=== PATIENT | female | born 1995 | race Caucasian/White ===

== ENCOUNTER 2018-08-29 10:21 | Emergency (ER) | payer MEDICAID, OTHER ==
[~2018-08-29] VITALS: Ht 170.2 cm; Wt 55.5 kg
[2018-08-29 10:30] VITALS: BP 120/56; PULSE 81; RESP 19; Ht 170.2 cm; Wt 55.5 kg
[2018-08-29] MEDS ORDERED: NITR-58 PO (12:36)
--- NOTE | 2018-08-29 12:42 | ERD ---
ER Documentation Chief Complaint Chief Complaint ABDOMINAL PAIN ; VAGINAL DISCHARGES LMP 07/17/18 HPI 23-year-old female presents for pelvic pain x1 day. Currently 6 weeks . She states A2 she states that she has a cramping sensation, rated 8 out of 10. Intermittent. She also states she has green discharge. She denies any vaginal bleeding. Denies nausea or vomiting. Denies fevers or chills. Otherwise no significant past medical history no other modifying factors noted. No treatment tried at home. ROS All systems reviewed and are negative except as per history of present illness. Medications Home Meds Active Scripts Nitrofurantoin Monohyd Macrocr* (Macrobid*) 100 Mg Capsr, 100 MG PO BID for bacteruria for 5 Days, #10 CAP Prov:ROBERT COOL DO 08/29/18 Allergies Allergies: Coded Allergies: No Known Allergy (Unverified , 08/29/18) PMhx/Soc Medical and Surgical Hx: pt denies Medical Hx, pt denies Surgical Hx Hx Alcohol Use: No Hx Substance Use: No Hx Tobacco Use: No Smoking Status: Never smoker FmHx Family History: No coronary disease Physical Exam Vitals Vital Signs Date Temp Pulse Resp B/P (MAP) Pulse Ox O2 O2 Flow FiO2 Time Delivery Rate 08/29/18 98.4 81 19 120/56 98 10:30 (77) Physical Exam Const: No acute distress Resp: Clear to auscultation bilaterally Cardio: Regular rate and rhythm, no murmurs Abd: Soft, non distended. Normal bowel sounds, no McBurney's point tendernes s, no Bedoya sign, no rebound or guarding noted, there is mild tenderness palpation over the pelvic area bilaterally Skin: No petechiae or rashes Back: No midline or flank tenderness Ext: No cyanosis, or edema Neur: Awake and alert Psych: Normal Mood and Affect Result Diagram: 08/29/18 1100 Results 24 hrs Laboratory Tests Test 08/29/18 11:00 White Blood Count 6.8 10^3/ul Red Blood Count 4.16 10^6/ul Hemoglobin 13.2 g/dl Hematocrit 39.0 % Mean Corpuscular Volume 93.8 fl Mean Corpuscular Hemoglobin 31.7 pg Mean Corpuscular Hemoglobin Concent 33.8 g/dl Red Cell Distribution Width 13.2 % Platelet Count 249 10^3/UL Mean Platelet Volume 9.5 fl Immature Granulocytes % 0.300 % Neutrophils % 64.4 % Lymphocytes % 23.0 % Monocytes % 10.5 % Eosinophils % 1.2 % Basophils % 0.6 % Nucleated Red Blood Cells % 0.0 /100WBC Immature Granulocytes # 0.020 10^3/ul Neutrophils # 4.4 10^3/ul Lymphocytes # 1.6 10^3/ul Monocytes # 0.7 10^3/ul Eosinophils # 0.1 10^3/ul Basophils # 0.0 10^3/ul Nucleated Red Blood Cells # 0.0 10^3/ul Urine Color YELLOW Urine Clarity CLOUDY Urine pH 5.0 Urine Specific [place] 1.021 Urine Ketones NEGATIVE mg/dL Urine Nitrite NEGATIVE mg/dL Urine Bilirubin NEGATIVE mg/dL Urine Urobilinogen NEGATIVE mg/dL Urine Leukocyte Esterase 1+ Truman/ul Urine Microscopic RBC 3 /HPF Urine Microscopic WBC 10 /HPF Urine Squamous Epithelial Cells FEW /HPF Urine Bacteria FEW /HPF Urine Mucus FEW /HPF Urine Hemoglobin NEGATIVE mg/dL Urine Glucose NEGATIVE mg/dL Urine Total Protein NEGATIVE mg/dl Beta HCG, Quantitative 69800.0 mIU/ml Procedures/MDM Medical Decision Making: Differential diagnosis includes but not limited to acute gastritis, acute gastroenteritis, appendicitis, cholecystitis, pancreatitis, nephrolithiasis Patient appeared well on physical exam. Nontoxic appearing. ED course: Labs: CBC showed no severe anemia, no elevated WBC to suggest infection Beta-hCG 99169 UA was shows some bacteria Imaging: OB ultrasound shows single live intrauterine about 6 weeks , ovaries noted to be normal Prescription(s): Patient given prescription for supportive medications, patient given Macrobid for bacteriuria in .. advised to follow-up with PLATFORM INSPECTOR. Patient advised to follow up with PCP in 1-2 days. Patient advised to return to ED for new or worsening symptoms. Patient stable on discharge from the ED. Disclaimer: Inadvertent spelling and grammatical errors are likely due to EHR/dictation software use and do not reflect on the overall quality of patient care. Also, please note that the electronic time recorded on this note does not necessarily reflect the actual time of the patient encounter. Departure Diagnosis: Primary Impression: Pelvic pain affecting Trimester: first trimester Qualified Codes: O26.891 - Other specified related conditions, first trimester; R10.2 - Pelvic and perineal p ain Condition: Fair Patient Instructions: Adapting to : First Trimester Referrals: [facility] YOU HAVE RECEIVED A MEDICAL SCREENING EXAM AND THE RESULTS INDICATE THAT YOU DO NOT HAVE A CONDITION THAT REQUIRES URGENT TREATMENT IN THE EMERGENCY DEPARTMENT. FURTHER EVALUATION AND TREATMENT OF YOUR CONDITION CAN WAIT UNTIL YOU ARE SEEN IN YOUR DOCTORS OFFICE WITHIN THE NEXT 1-2 DAYS. IT IS YOUR RESPONSIBILITY TO MAKE AN APPOINTMENT FOR FOLOW-UP CARE. IF YOU HAVE A PRIMARY DOCTOR --you should call your primary doctor and schedule an appointment IF YOU DO NOT HAVE A PRIMARY DOCTOR YOU CAN CALL OUR PHYSICIAN REFERRAL HOTLINE AT IF YOU CAN NOT AFFORD TO SEE A PHYSICIAN YOU CAN CHOSE FROM THE FOLLOWING [facility] [address] [facility]. [facility] [address] [facility]. [facility] [address] [facility] [facility] [address] [facility]. [facility] [address] [facility]. [facility] [address] Additional Instructions: Call your primary care doctor TOMORROW for an appointment during the next 1-2 days.See the doctor sooner or return here if your condition worsens before your appointment time. ROBERT COOL DO August 29, 2018 12:42
== END 2018-08-29 13:06 | disposition home or self-care (01) ==
LOC: FTE 10:21
DX: O26.891 Other specified pregnancy related conditions, first trimester (principal); R10.2 Pelvic and perineal pain; Z3A.01 Less than 8 weeks gestation of pregnancy
CPT/HCPCS: 36415; 76801; 76817; 81001; 84702; 85025; 86900; 86901; Z7502

== ENCOUNTER 2018-10-02 14:57 | Emergency (ER) | payer OTHER ==
[~2018-10-02] VITALS: Ht 170.2 cm; Wt 55.7 kg
[~2018-10-02 14:57] MED LIST: NITR-58 PO
[2018-10-02 15:00] VITALS: Ht 170.2 cm; Wt 55.7 kg
[2018-10-02] MEDS ORDERED: ACETAMINOPHEN 500 MG TAB PO STA (15:12)
[2018-10-02] MEDS ORDERED: SOD CHLORIDE 0.9% 1,000 ML IV STA (15:12)
[2018-10-02] MEDS ORDERED: ONDANSETRON 4 MG INJ IV STA (15:12)
--- NOTE | 2018-10-02 16:40 | ERD ---
ER Documentation Chief Complaint Chief Complaint vomiting and headache since yesterday, 11weeks HPI Patient is a 23-year-old female who is about 11 weeks complaining of nausea vomiting and headache. Patient has no OB complaints. No abdominal pain or pelvic pain. No vaginal bleeding. No dysuria hematuria or frequency. No fevers. Has not taken any medications for her headache. ROS All systems reviewed and are negative except as per history of present illness. Medications Home Meds Active Scripts Acetaminophen* (Tylophen*) 500 Mg Capsule, 1 CAP PO Q4 PRN for PAIN AND OR ELEVATED TEMP, #30 CAP Prov:JOHN JOLLEY PA-C 04/20/18 Omeprazole* (Omeprazole*) 20 Mg Capsule., 20 MG PO DAILY, #14 Prov:JOHN JOLLEY PA-C 04/20/18 Allergies Allergies: Coded Allergies: No Known Allergy (Unverified , 10/02/18) PMhx/Soc Hx Alcohol Use: No Hx Substance Use: No Hx Tobacco Use: No Smoking Status: Never smoker FmHx Family History: No diabetes Physical Exam Vitals Vital Signs Date Temp Pulse Resp B/P (MAP) Pulse Ox O2 O2 Flow FiO2 Time Delivery Rate 10/02/18 97.9 71 18 126/56 98 15:00 (79) Physical Exam INITIAL VITAL SIGNS: Reviewed by me GENERAL: Awake, alert and oriented x 4, well appearing, nontoxic, speaking in full sentences. No acute distress HEAD: Atraumatic NECK: Supple. No masses. Full range of motion. No meningismus. No midline tenderness. EYES: EOMI. PERRL. RESPIRATORY: Clear to auscultation bilaterally. Symmetric chest wall rise. No wheezing or rales. No accessory muscle use. CV: Regular rate and rhythm. No murmurs, rubs, or gallops. ABDOMEN: Soft, non-distended. Nontender. Negative Kipling. Negative McBurneys point tenderness. No CVA tenderness bilaterally. No guarding. No rebound. NEUROLOGIC: Normal mental status and speech. Face is symmetric. Moves all extremities equally. Motor and sensory distally intact. Normal coordination. Ambulates with a strong steady gait. Result Diagram: 10/02/18 1521 10/02/18 1521 Results 24 hrs Laboratory Tests Test 6/24/19 15:21 White Blood Count 9.9 10^3/ul Red Blood Count 3.94 10^6/ul Hemoglobin 12.7 g/dl Hematocrit 37.0 % Mean Corpuscular Volume 93.9 fl Mean Corpuscular Hemoglobin 32.2 pg Mean Corpuscular Hemoglobin Concent 34.3 g/dl Red Cell Distribution Width 13.1 % Platelet Count 253 10^3/UL Mean Platelet Volume 9.7 fl Immature Granulocytes % 0.600 % Neutrophils % 67.5 % Lymphocytes % 22.1 % Monocytes % 8.3 % Eosinophils % 1.0 % Basophils % 0.5 % Nucleated Red Blood Cells % 0.0 /100WBC Immature Granulocytes # 0.060 10^3/ul Neutrophils # 6.7 10^3/ul Lymphocytes # 2.2 10^3/ul Monocytes # 0.8 10^3/ul Eosinophils # 0.1 10^3/ul Basophils # 0.1 10^3/ul Nucleated Red Blood Cells # 0.0 10^3/ul Urine Color YELLOW Urine Clarity SLIGHTLY CLOUDY Urine pH 7.0 Urine Specific [place] 1.019 Urine Ketones NEGATIVE mg/dL Urine Nitrite NEGATIVE mg/dL Urine Bilirubin NEGATIVE mg/dL Urine Urobilinogen NEGATIVE mg/dL Urine Leukocyte Esterase 1+ Truman/ul Urine Microscopic RBC 1 /HPF Urine Microscopic WBC 2 /HPF Urine Squamous Epithelial Cells MODERATE /HPF Urine Bacteria FEW /HPF Urine Mucus FEW /HPF Urine Hemoglobin NEGATIVE mg/dL Urine Glucose NEGATIVE mg/dL Urine Total Protein NEGATIVE mg/dl Sodium Level 138 mmol/L Potassium Level 3.8 mmol/L Chloride Level 104 mmol/L Carbon Dioxide Level 23 mmol/L Anion Gap 11 Blood Urea Nitrogen 8 mg/dl Creatinine 0.53 mg/dl Est Glomerular Filtrat Rate mL/min > 60 mL/min Glucose Level 81 mg/dl Calcium Level 9.0 mg/dl Total Bilirubin 0.5 mg/dl Direct Bilirubin 0.00 mg/dl Indirect Bilirubin 0.5 mg/dl Aspartate Amino Transf (AST/SGOT) 23 IU/L Alanine Aminotransferase (ALT/SGPT) 22 IU/L Alkaline Phosphatase 59 IU/L Total Protein 7.1 g/dl Albumin 4.0 g/dl Globulin 3.10 g/dl Albumin/Globulin Ratio 1.29 Current Medications Medications Dose Sig/Tl Start Time Status Last (Trade) Ordered Route PRN Stop Time Admin Dose Reason Admin Sodium 1,000 ml @ Q1H STAT 10/02/18 DC 10/02/18 Chloride 1,000 mls/hr IV 15:12 15:26 10/02/18 16:11 Ondansetron 4 mg ONCE STAT 10/02/18 DC 10/02/18 HCl (Zofran IV 15:12 15:24 Inj) 10/02/18 15:14 1,000 mg ONCE STAT 10/02/18 DC 10/02/18 Acetaminophen PO 15:12 15:24 (Tylenol 10/02/18 15:14 Tab) Procedures/MDM Patient has headache and nausea vomiting with . She has no pelvic pain or abdominal pain or vaginal bleeding. She is being followed up with her OB and today has no OB complaints. Laboratory analysis shows no evidence of acute emergent abnormality. No evidence of significant leukocytosis suggesting systemic infection or severe anemia. No evidence of acute renal or liver failure, no evidence of severe alkalosis or acidosis. Patient felt better after getting IV fluids, p.o. Tylenol, and Zofran. And Keflex as her urine today does show a UTI. Patient counseled regarding my diagnostic impression and care plan. Prior to discharge all questions answered. Pt agrees with treatment plan and understands strict return precautions. Pt is instructed to follow up with primary care provider within 24-48 hours. Precautionary instructions provided including instructions to return to the ER if not improving or for any worsening or changing symptoms or concerns. Departure Diagnosis: Primary Impression: Vomiting Additional Impression: Headache Condition: Stable GLADYS ALEXANDER PA-C Oct 02, 2018 16:40
[2018-10-02 17:16] VITALS: BP 109/57; PULSE 80; RESP 18
== END 2018-10-02 17:18 | disposition home or self-care (01) ==
LOC: MERGE 14:57 → FTE 14:57
DX: O21.9 Vomiting of pregnancy, unspecified (principal); O26.891 Other specified pregnancy related conditions, first trimester; R51 Headache; Z3A.11 11 weeks gestation of pregnancy
CPT/HCPCS: 80053; 81001; 85025; 96361; 96374; J2405; J7030; Z7502; Z7610

== ENCOUNTER 2018-10-10 19:13 | Emergency (ER) | payer OTHER ==
[~2018-10-10] VITALS: Ht 170.2 cm; Wt 57.0 kg
[2018-10-10 19:21] VITALS: BP 107/59; PULSE 72; RESP 16; Ht 170.2 cm; Wt 57.0 kg
[2018-10-10] MEDS ORDERED: ACET500C5 PO (21:37)
--- NOTE | 2018-10-10 21:45 | ERD ---
ER Documentation Chief Complaint Chief Complaint pelvic pain, no vag bleeding. 12 weeks HPI Patient is a 23-year-old female, no past medical history, G3, SAB 2 who presents to the ER for concerns of pelvic pain which started earlier today. Patient states she was at her [employer]ATEM[employer]ER's office at [facility] and Doppler ultrasound did not show any heart tones. Patient states she presents today requesting formal ultrasound given that heart tones were not noted. Patient denies any vaginal bleeding. Patient denies any fevers or chills. Patient denies any dysuria, frequency, urgency or hematuria. ROS All systems reviewed and are negative except as per history of present illness. Medications Home Meds Active Scripts Acetaminophen* (Tylophen*) 500 Mg Capsule, 1 CAP PO Q6H PRN for PAIN AND OR ELEVATED TEMP, #20 CAP Prov:MARTINA CLARK PA-C 10/10/18 Nitrofurantoin Monohyd Macrocr* (Macrobid*) 100 Mg Capsr, 100 MG PO BID for bacteruria for 5 Days, #10 CAP Prov:ROBERT COOL DO 08/29/18 Allergies Allergies: Coded Allergies: No Known Allergy (Unverified , 08/29/18) PMhx/Soc Medical and Surgical Hx: pt denies Medical Hx, pt denies Surgical Hx Hx Alcohol Use: No Hx Substance Use: No Hx Tobacco Use: No Smoking Status: Never smoker FmHx Family History: No diabetes Physical Exam Vitals Vital Signs Date Temp Pulse Resp B/P (MAP) Pulse Ox O2 O2 Flow FiO2 Time Delivery Rate 10/10/18 99.1 72 16 107/59 100 19:21 (75) Physical Exam GENERAL: Well-developed, well-nourished female. Appears in no acute distress. HEAD: Normocephalic, atraumatic. EYES: Pupils are equally reactive bilaterally. EOMs grossly intact. No conjunctival erythema. NECK: Supple. No meningismus. Normal range of motion of the neck. LUNG: Clear to auscultation bilaterally. No rhonchi, wheezing, rales or coarse breath sounds. HEART: Regular rate and rhythm. No murmurs, rubs or gallops. ABDOMEN: No scars, ecchymosis or rashes noted. Soft, nontender, and nondistended. Positive bowel sounds in all four quadrants. No rebound tenderness, no guarding. (-) McBurney's point tenderness. No CVA tenderness. EXTREMITIES: Equal pulses bilaterally. No peripheral clubbing, cyanosis or edema. No unilateral leg swelling. NEUROLOGIC: Alert and oriented. Moving all four extremities without any diffi culty. Normal speech. Steady gait. SKIN: Normal color. Warm and dry. No rashes or lesions. Result Diagram: 10/10/181957 Results 24 hrs Laboratory Tests Test 10/10/18 19:58 White Blood Count 8.8 10^3/ul Red Blood Count 3.83 10^6/ul Hemoglobin 12.6 g/dl Hematocrit 35.6 % Mean Corpuscular Volume 93.0 fl Mean Corpuscular Hemoglobin 32.9 pg Mean Corpuscular Hemoglobin Concent 35.4 g/dl Red Cell Distribution Width 13.2 % Platelet Count 258 10^3/UL Mean Platelet Volume 9.5 fl Immature Granulocytes % 0.600 % Neutrophils % 65.3 % Lymphocytes % 25.1 % Monocytes % 7.4 % Eosinophils % 1.0 % Basophils % 0.6 % Nucleated Red Blood Cells % 0.0 /100WBC Immature Granulocytes # 0.050 10^3/ul Neutrophils # 5.7 10^3/ul Lymphocytes # 2.2 10^3/ul Monocytes # 0.7 10^3/ul Eosinophils # 0.1 10^3/ul Basophils # 0.1 10^3/ul Nucleated Red Blood Cells # 0.0 10^3/ul Urine Color YELLOW Urine Clarity SLIGHTLY CLOUDY Urine pH 5.0 Urine Specific [place] 1.023 Urine Ketones NEGATIVE mg/dL Urine Nitrite NEGATIVE mg/dL Urine Bilirubin NEGATIVE mg/dL Urine Urobilinogen NEGATIVE mg/dL Urine Leukocyte Esterase TRACE [place]/ul Urine Microscopic RBC 1 /HPF Urine Microscopic WBC 7 /HPF Urine Squamous Epithelial Cells MANY /HPF Urine Bacteria FEW /HPF Urine Hemoglobin NEGATIVE mg/dL Urine Glucose NEGATIVE mg/dL Urine Total Protein NEGATIVE mg/dl Beta HCG, Quantitative 90325.0 mIU/ml Procedures/MDM ED COURSE: The patient was stable throughout ED course. I kept the patient and/or family informed of laboratory and diagnostic imaging results throughout the ED course. DIAGNOSTIC IMAGING: Read by radiologist. Patient: JOSE CHEN : 1995 Age: 23 Sex: F MR #: [id number] DOS: 10/10/18 1948 Ordering MD: MARTINA CLARK PA-C Location: [facility] Room/Bed: PROCEDURE: US OB. CLINICAL INDICATION: . Pain. No demonstrated heart tones obstetrics office. LAST MENSTRUAL PERIOD: 07/17/2018 TECHNIQUE: Transabdominal and transvaginal views of the pelvis are available for review. COMPARISON: 08/29/2018 FINDINGS: Sandborn-rump length: 5.5 cm heart rate: 152 Ultrasound estimated gestational age: 12 weeks and 1 day No ovarian or adnexal mass lesion is seen. There is no free fluid. IMPRESSION: Single live intrauterine with an estimated gestational age of 12 weeks and 1 day. RPTAT:AAJJ Physician Rufino Date Time Electronically viewed and signed by Zachariah Raygoza Physician on 10/10/2018 20:22 MH/ CC: MARTINA CLARK PA-C [id number] MEDICAL DECISION MAKING: This is a 23-year-old female, G3, P0, SAB 2 who presents the ER for concerns of pelvic pain. Patient denies any vaginal bleeding.. Vital signs were reviewed. Patient was afebrile. Patient was hemodynamically stable. CBC shows no evidence of systemic infection or anemia. [place] [address]. UA showed trace leukocyte esterase. Patient denies any dysuria, frequency, urgency or hematuria thus will defer treatment at this time. Pelvic ultrasound showed single live intrauterine gestation of 12 weeks and 1 day. At this time, patient presentation is most consistent with pelvic pain in the setting of . Low suspicion for ectopic , ruptured ectopic , molar , subchorionic hematoma, spontaneous , incomplete , complete , missed , placental abruption, placental previa, vasa previa, uterine rupture, anembyronic , UTI, pyonephritis. She was nontoxic, [id number] prior to discharge. PRESCRIPTIONS: Tylenol DISCHARGE: At this time, patient is stable for discharge and outpatient management. I had a conversation at length with the patient about the concerns of vaginal bleeding during the 1st trimester of . Patient and/or family understands that her vaginal bleeding can be a normal finding or a sign of miscarriage. I have instructed the patient to follow-up with her OBGYN in 1-2 days for further monitoring including a repeat b-HCG level. I have instructed the patient to promptly return to the ER at any time for any new or worsening symptoms including increased pain, nausea, vomiting, continued bleeding, weakness, syncope or fever. The patient and/or family expressed understanding of and agreement with this plan. All questions were answered. Home care instructions were provided. Disclaimer: Inadvertent spelling and grammatical errors are likely due to EHR/dictation software use and do not reflect on the overall quality of patient care. Also, please note that the electronic time recorded on this note does not necessarily reflect the actual time of the patient encounter. Departure Diagnosis: Primary Impression: Pelvic pain affecting Trimester: unspecified trimester Qualified Codes: O26.899 - Other sp ecified related conditions, unspecified trimester; R10.2 - Pelvic and perineal pain Condition: Fair Patient Instructions: Pelvic Pain In : Unclear (2-3 Trimester) Additional Instructions: Call your primary care doctor TOMORROW for an appointment during the next 1-2 days.See the doctor sooner or return here if your condition worsens before your appointment time. MARTINA CLARK PA-C Oct 10, 2018 21:45
== END 2018-10-10 21:43 | disposition home or self-care (01) ==
LOC: FTE 19:13
DX: O26.891 Other specified pregnancy related conditions, first trimester (principal); R10.2 Pelvic and perineal pain; Z3A.12 12 weeks gestation of pregnancy
CPT/HCPCS: 36415; 76801; 81001; 84702; 85025; 86900; 86901; Z7502

== ENCOUNTER 2018-10-30 21:47 | Emergency (ER) | payer OTHER ==
[~2018-10-30] VITALS: Ht 170.2 cm; Wt 62.0 kg
[~2018-10-30 21:47] MED LIST changes: +ACET500C5 PO
[2018-10-30 21:56] VITALS: Ht 170.2 cm; Wt 62.0 kg
--- NOTE | 2018-10-30 23:44 | ERD ---
ER Documentation Chief Complaint Chief Complaint glf x 45 min ago, fell on tailbone, vb x35 min, 15 weeks HPI This patient is a 23-year-old female who is G3, , presenting to the emergency department with complaints of vaginal bleeding which began after fall at 8 PM today. The patient is reportedly 15 weeks . She reports suprapubic and tailbone pain which is rated 8/10 in severity and worse with walking. She describes a cramping sensation. She did not fall directly onto the abdomen. Last menstrual cycle was 07/17/2018. She denies head injury, loss of consciousness, or other symptoms or injuries at this time. ROS All systems reviewed and are negative except as per history of present illness. Medications Home Meds Active Scripts Acetaminophen* (Tylophen*) 500 Mg Capsule, 1 CAP PO Q6H PRN for PAIN AND OR ELEVATED TEMP, #20 CAP Prov:MARTINA CLARK PA-C 10/10/18 Nitrofurantoin Monohyd Macrocr* (Macrobid*) 100 Mg Capsr, 100 MG PO BID for bacteruria for 5 Days, #10 CAP Prov:ROBERT COOL DO 08/29/18 Allergies Allergies: Coded Allergies: No Known Allergy (Unverified , 08/29/18) PMhx/Soc Medical and Surgical Hx: pt denies Medical Hx, pt denies Surgical Hx Hx Alcohol Use: No Hx Substance Use: No Hx Tobacco Use: No Smoking Status: Never smoker FmHx Family History: No diabetes Physical Exam Vitals Vital Signs Date Temp Pulse Resp B/P (MAP) Pulse Ox O2 O2 Flow FiO2 Time Delivery Rate 10/31/18 98.7 72 18 99/50 (66) 98 02:10 10/30/18 99.0 80 18 111/52 99 21:56 (71) Physical Exam Const: No acute distress Head: Atraumatic Eyes: Normal Conjunctiva ENT: Normal External Ears, Nose and Mouth. Neck: Full range of motion. No meningismus. Resp: Clear to auscultation bilaterally Cardio: Regular rate and rhythm, no murmurs Abd: Soft, non tender, non distended. Normal bowel sounds. No rebound tenderness or guarding. No McBurney's point tenderness. Tenderness palpation of the suprapubic region bilaterally. Skin: No petechiae or rashes Back: No midline or flank tenderness. Tenderness palpation of the sacral area. Ext: No cyanosis, or edema Neur: Awake and alert Psych: Normal Mood and Affect Results 24 hrs [place] [id number] Radiology Main Line: [phone] DIAGNOSTIC IMAGING REPORT Patient: JOSE CHEN : 1995 Age: 23 Sex: F MR #: [id number] DOS: 10/30/18 0000 Ordering MD: RUSS LUCERO PA-C Location: [facility] Room/Bed: AMENDMENT: 10/31/2018 1:32:54 AM Joshua Pop M.d Addendum: CLINICAL INDICATION: . Pain, vaginal bleeding, status post trauma PROCEDURE: US OB CLINICAL INDICATION: . Pain TECHNIQUE: Multiple transabdominal sonographic images of the pelvis and gravid uterus were obtained. The images were reviewed on a PACS workstation. COMPARISON: US PELVIS 10/10/2018 FINDINGS: Cervix: Not delineated. Gestation: Single live intrauterine gestation. Cardiac activity: 143 beats per minute. Presentation: Variable Placenta: Location: Posterior Appearance: No abruption. There may be placenta previa. Amniotic Fluid: Maximal vertical pocket equals 3.92 cm. Measurements: BPD = 2.96 cm, 15 weeks 3 days HC = 10.92 cm, 15 weeks 2 days AC = 9.09 cm, 15 weeks 2 days FL = 1.64 cm, 14 weeks 6 days Gestational Age: AUA estimated gestational age: 15 weeks 2 days LMP estimated gestational age: 15 weeks 0 days AUA estimated date of delivery: 04/21/2019 The EFW = 114.64 g, 43.9 %ile based on LMP age. IMPRESSION: 1. Single live intrauterine gestation of 15 weeks 2 days by ultrasound criteria. 2. Estimated date of delivery of 04/21/2019. 3. Possible placenta previa. Follow-up is recommended. RPTAT: HJES .Joshua Pop MD, MD Date Time Electronically viewed and signed by .Joshua Pop MD, on 10/31/2018 01:32 .S/ CC: RUSS LUCEOR PA-C [id number] Procedures/MDM 23-year-old female presents emergency department complaining of tailbone pain and vaginal bleeding after a fall at 8 PM today. The patient is reportedly 15 weeks . X-ray of the sacrum was recommended, however patient declined. She states she is "only here to make sure the baby is okay". Obstetrics ultrasound revealed a normal intrauterine with heart tones present. History, physical examination, work-up most consistent with threatened . Patient is otherwise stable for discharge and outpatient management at this time. I doubt significant anemia as bleeding has been minimal and patient is asymptomatic. She is given copies of her results and advised to have 24 to 48-hour follow-up with her VOCATIONAL EXAMINER physician and return here for any concerning symptoms. She understands and agrees with the plan. Departure Diagnosis: Primary Impression: Vaginal bleeding in patient at less than 20 weeks gestation Additional Impression: Fall with no significant injury Condition: Fair Patient Instructions: Fall Prevention, Bleeding During Early Additional Instructions: Follow up with your PCP within the next 1-3 days for a repeat evaluation. If you require a referral to a specialist, your Primary Care Provider may be able to provide this for you. In most patient cases, a referral is not required. If you have further questions regarding this matter, please ask your Primary Care Provider. Return the the emergency department immediately if symptoms worsen or change. If you have any questions regarding medications, ask your pharmacist or us before you leave. If any adverse reactions, occur while taking your medications, discontinue the treatment and return to the emergency department immediately. If any new or worsening symptoms, uncontrolled fevers, or other unexplained symptoms occur, return to the emergency department immediately. Take your medications as directed, and complete the entire course of treatment. RUSS LUCERO PA-C Oct 30, 2018 23:44
[2018-10-31 02:10] VITALS: BP 99/50; PULSE 72; RESP 18
== END 2018-10-31 02:10 | disposition home or self-care (01) ==
LOC: FTE 21:47
DX: O20.9 Hemorrhage in early pregnancy, unspecified (principal); W18.39XA Other fall on same level, initial encounter; Y92.9 Unspecified place or not applicable; Z04.3 Encounter for examination and observation following other accident; Z3A.15 15 weeks gestation of pregnancy
CPT/HCPCS: 76805; Z7502

== ENCOUNTER 2018-11-18 22:46 | Emergency (ER) | payer OTHER ==
[~2018-11-18] VITALS: Ht 165.1 cm; Wt 57.9 kg
[2018-11-18 22:52] VITALS: BP 124/73; PULSE 73; RESP 20; Ht 165.1 cm; Wt 57.9 kg
--- NOTE | 2018-11-18 23:27 | ERD ---
ER Documentation Chief Complaint Chief Complaint claims she does not feel baby moving 17wks preg since last night HPI Patient is a 23-year-old female, G3, P0, SAB 2, presents to the ER for concerns of not feeling her baby move. Patient states is approximately 17 weeks . Patient denies any vaginal bleeding or vaginal discharge. Patient states occasionally she has pelvic pain. Patient has no fevers, chills, nausea vomiting, dysuria increasing, urgency or hematuria. Patient states her PARCEL POST ORDER CLERK is Dr. Santos at the [facility]. Patient states she has not had ultrasound completed with her PARCEL POST ORDER CLERK since her first ultrasound. Patient states she was told that her next ultrasound to be at 22 weeks. ROS All systems reviewed and are negative except as per history of present illness. Medications Home Meds Active Scripts Acetaminophen* (Tylophen*) 500 Mg Capsule, 1 CAP PO Q6H PRN for PAIN AND OR ELEVATED TEMP, #20 CAP Prov:MARTINA CLARK PA-C 11/19/18 Acetaminophen* (Tylophen*) 500 Mg Capsule, 1 CAP PO Q6H PRN for PAIN AND OR ELEVATED TEMP, #20 CAP Prov:MARTINA CLARK PA-C 10/10/18 Nitrofurantoin Monohyd Macrocr* (Macrobid*) 100 Mg Capsr, 100 MG PO BID for bacteruria for 5 Days, #10 CAP Prov:ROBERT COOL DO 08/29/18 Allergies Allergies: Coded Allergies: No Known Allergy (Unverified , 08/29/18) PMhx/Soc Medical and Surgical Hx: pt denies Medical Hx, pt denies Surgical Hx History of Surgery: No Anesthesia Reaction: No Hx Neurological Disorder: No Hx Respiratory Disorders: No Hx Cardiac Disorders: No Hx Alcohol Use: No Hx Substance Use: No Hx Tobacco Use: No Smoking Status: Never smoker FmHx Family History: No diabetes Physical Exam Vitals Vital Signs Date Temp Pulse Resp B/P (MAP) Pulse Ox O2 O2 Flow FiO2 Time Delivery Rate 11/18/18 97.8 73 20 124/73 97 22:52 (90) Physical Exam GENERAL: Well-developed, well-nourished female. Appears in no acute distress. HEAD: Normocephalic, atraumatic. EYES: Pupils are equally reactive bilaterally. EOMs grossly intact. No conjunctival erythema. ENT: Moist mucous membranes. No uvula deviation. No kissing tonsils. NECK: Supple. No meningismus. Normal range of motion of the neck. LUNG: Clear to auscultation bilaterally. No rhonchi, wheezing, rales or coarse breath sounds. HEART: Regular rate and rhythm. No murmurs, rubs or gallops. ABDOMEN:. Soft, nontender, and nondistended. Positive bowel sounds in all four quadrants. No rebound tenderness, no guarding. (-) McBurney's point tenderness. No CVA tenderness. EXTREMITIES: Equal pulses bilaterally. No peripheral clubbing, cyanosis or edema. No unilateral leg swelling. NEUROLOGIC: Alert and oriented. Moving all four extremities without any difficulty. Normal speech. Steady gait. SKIN: Normal color. Warm and dry. No rashes or lesions. Results 24 hrs Laboratory Tests Test 11/18/18 23:31 11/18/18 23:44 POC Beta HCG, Qualitative POSITIVE Bedside Urine pH (LAB) 5.5 Bedside Urine Protein (LAB) Negative Bedside Urine Glucose (UA) Negative Bedside Urine Ketones (LAB) Negative Bedside Urine Blood Negative Bedside Urine Nitrite (LAB) Negative Bedside Urine Leukocyte Esterase (L Negative Procedures/MDM ED COURSE: The patient was stable throughout ED course. I kept the patient and/or family informed of laboratory and diagnostic imaging results throughout the ED course. DIAGNOSTIC IMAGING: Read by radiologist. DIAGNOSTIC IMAGING REPORT Patient: JOSE CHEN : 1995 Age: 23 Sex: F MR #: [id number] DOS: 11/18/18 2323 Ordering MD: MARTINA CLARK PA-C Location: [facility] Room/Bed: PROCEDURE: US OB CLINICAL INDICATION: . Pelvic pain, no heart tones TECHNIQUE: Multiple transabdominal sonographic images of the pelvis and gravid uterus were obtained. The images were reviewed on a PACS workstation. COMPARISON: 10/30/2018 FINDINGS: Cervix: Not delineated. Gestation: Single live intrauterine gestation. Cardiac activity: 138 beats per minute. Presentation: Variable Placenta: Location: Posterior fundal Appearance: No abruption. Amniotic Fluid: Maximal vertical pocket equals 6.1 cm. Measurements: BPD = 3.84 cm, 17 weeks 5 days HC = 14.21 cm, 17 weeks 3 days AC = 12.66 cm, 18 weeks 2 days FL = 2.43 cm, 17 weeks 2 days Gestational Age: AUA estimated gestational age: 17 weeks 5 days LMP estimated gestational age: 17 weeks 6 days AUA estimated date of delivery: 04/23/2019 The EFW = 209.6 g, 40 %ile based on LMP age. IMPRESSION: 1. Single live intrauterine gestation of 17 weeks 5 days by ultrasound criteria. 2. Estimated date of delivery of 04/23/2019. 3. No abnormality identified. RPTAT: HJES .Joshua Pop MD, MD Date Time Electronically viewed and signed by .Joshua Pop MD, MD on 11/19/2018 01:06 .S/ CC: MARTINA CLARK PA-C [id number] PROCEDURES: None. MEDICAL DECISION MAKING: This is a 23-year-old female presents the ER for concerns of pelvic pain and not feeling movement for the last day. Denied any vaginal bleeding. Vital signs were reviewed. Patient was afebrile. Patient was hemodynamically stable. Urine test was positive. Pelvis US showed 1. Single live intrauterine gestation of 17 weeks 5 days by ultrasound criteria.2. Estimated date of delivery of 04/23/2019. 3. No abnormality identified. At this time, patient presentation is most consistent with pelvic pain affecting . Low suspicion for ectopic , ruptured ectopic , molar , subchorionic hematoma, spontaneous , incomplete , complete , missed , placental abruption, placental previa, vasa previa, uterine rupture, anembyronic . Low suspicion for UTI, pyonephritis, nephrolithiasis. She was nontoxic, [id number] prior to discharge. PRESCRIPTIONS: Tylenol DISCHARGE: At this time, patient is stable for discharge and outpatient management. I have instructed the patient to follow-up with her OBGYN in 1-2 days. I have instructed the patient to promptly return to the ER at any time for any new or worsening symptoms including increased pain, nausea, vomiting, continued bleeding, weakness, syncope or fever. The patient and/or family expressed understanding of and agreement with this plan. All questions were answered. Home care instructions were provided. Disclaimer: Inadvertent spelling and grammatical errors are likely due to EHR/dictation software use and do not reflect on the overall quality of patient care. Also, please note that the electronic time recorded on this note does not necessarily reflect the actual time of the patient encounter. Departure Diagnosis: Primary Impression: Pelvic pain affecting Trimester: second trimester Qualified Codes: O26.892 - Other specified related conditions, second trimester; R10.2 - Pelvic and perineal pain Condition: Fair Patient Instructions: Pelvic Pain In : Unclear (2-3 Trimester) Referrals: [facility] (PCP) Additional Instructions: Call your primary care doctor/ OBGYN TOMORROW for an appointment during the next 1-2 days.See the doctor sooner or return here if your condition worsens before your appointment time. MARTINA CLARK PA-C Nov 18, 2018 23:27
== END 2018-11-19 01:21 | disposition home or self-care (01) ==
LOC: FTE 22:46
DX: O26.892 Other specified pregnancy related conditions, second trimester (principal); R10.2 Pelvic and perineal pain; Z3A.17 17 weeks gestation of pregnancy
CPT/HCPCS: 76805; 81003; 81025; Z7502

== ENCOUNTER 2019-01-26 21:20 | Outpatient (CLI) | payer OTHER ==
[~2019-01-26] VITALS: Ht 170.2 cm; Wt 64.4 kg
[~2019-01-26 21:20] MED LIST changes: +FER325 PO; +PREN-99 PO
[2019-01-26 21:41] VITALS: Ht 170.2 cm; Wt 64.4 kg
[2019-01-26 21:42] VITALS: BP 105/51; PULSE 77; RESP 18
== END 2019-01-27 01:04 | disposition home or self-care (01) ==
LOC: OBT 21:20 → L-D 21:21 → OBT 01-27 01:04
PROVIDERS: ATTEND Specialist
DX: O46.8X2 Other antepartum hemorrhage, second trimester (principal); Z3A.27 27 weeks gestation of pregnancy
CPT/HCPCS: 76817; 76818; 81003; Z7500; G0463